=== PATIENT | male | born 1990 | race African-American/Black ===

== ENCOUNTER 2022-11-18 08:51 | Emergency (ER) | payer SELFPAY ==
[2022-11-18] MEDS ORDERED: levETIRAcetam 500 MG/5 ML VIAL ONE (09:25)
== END 2022-11-18 10:43 | disposition home or self-care (01) ==
LOC: ERS 08:51
DX: G40.909 Epilepsy, unspecified, not intractable, without status epilepticus (principal); E03.9 Hypothyroidism, unspecified; I10 Essential (primary) hypertension; F17.210 Nicotine dependence, cigarettes, uncomplicated; Z79.899 Other long term (current) drug therapy
CPT/HCPCS: 96365; J1953

== ENCOUNTER 2023-10-09 09:49 | Inpatient (IN) | payer OTHER ==
[2023-10-09] MEDS ORDERED: Ondansetron PF 4 MG/2 ML Vial IVP PRN (11:00)
[2023-10-09] MEDS ORDERED: Acetaminophen 325 MG TAB PO PRN (11:00)
[2023-10-09] MEDS ORDERED: Sodium Chloride 0.9% 1,000 ML IV SCH (11:00)
[2023-10-09] MEDS ORDERED: Ondansetron ODT 4 MG TAB SL PRN (11:00)
[2023-10-09] MEDS ORDERED: FLU VACC QS2023-24(6MOS UP)/PF 60 MCG/0.5 ML SYRINGE IM ONE (11:45)
[2023-10-09] MEDS ORDERED: ALPRAZolam 0.5 MG TAB PO SCH (13:45)
[2023-10-09] MEDS ORDERED: Ziprasidone 20 MG CAP PO SCH (13:45)
[2023-10-09] MEDS: Phenytoin Extended Release 100 MG CAP PO SCH (20:56)
[2023-10-09] MEDS: levETIRAcetam 500 MG TAB PO SCH (20:56)
[2023-10-09] MEDS: ALPRAZolam 1 MG TAB PO SCH (20:56)
[2023-10-10] MEDS: Levothyroxine Sodium 25 MCG TAB PO SCH (06:35)
[2023-10-10 08:16] LABS: #Neutrophils 10.9 thou/uL (1.40-6.50); %Basophils 0.2 % (0.0-1.0); %Eosinophils 0.1 % (0.0-10.0); %Lymphocytes 13.8 % (21.0-51.0); %Monocytes 6.9 % (0.0-10.0); %Neutrophils 78.6 % (42.0-75.0); Hematocrit 44.3 % (42.0-52.0); Hemoglobin 15.3 g/dL (14.0-18.0); Mean Corpuscular HGB CONC 34.5 g/dL (32.0-36.0); Mean Corpuscular Hemoglobin 31.5 pg (27.0-31.0); Mean Corpuscular Volume 91.2 fl (78.0-98.0); Mean Platelet Volume 9.2 fL (7.4-10.4); Platelet Count 271 10x3/uL (130-400); RBC Distribution Width 13.5 % (11.5-14.5); Red Blood Cell (RBC) Count 4.86 mill/uL (4.70-6.10); White Blood Cell (WBC) Count 13.9 10x3/uL (4.8-10.8)
[2023-10-10 08:23] LABS: ALT (SGPT) 24 U/L (8-55); AST (SGOT) 32 U/L (5-34); Albumin 3.9 g/dL (3.5-5.0); Alkaline Phosphatase 62 U/L (40-110); Anion Gap 12 mmol/L (10-20); BUN (Urea Nitrogen) 6 mg/dL (8.9-20.6); Bilirubin, Total 0.6 mg/dL (0.2-1.2); Calc. Creatinine Clearance 84 mL/min (70-130); Calcium 8.7 mg/dL (7.8-10.44); Carbon Dioxide 20 mmol/L (22-29); Chloride 109 mmol/L (98-107); Estimated GFR 91; Globulin 2.7 g/dL (2.4-3.5); Glucose 95 mg/dL (70-105); Magnesium 2.2 mg/dL (1.6-2.6); Potassium 3.3 mmol/L (3.5-5.1); Protein, Total 6.6 g/dL (6.0-8.3); Sodium 138 mmol/L (136-145)
[2023-10-10] MEDS: Amlodipine 10 MG TAB PO SCH ×2 (08:50→08:51)
[2023-10-10] MEDS: levETIRAcetam 500 MG TAB PO SCH ×2 (08:51→21:52)
[2023-10-10] MEDS: Phenytoin Extended Release 100 MG CAP PO SCH ×2 (08:51→21:52)
[2023-10-10] MEDS: ALPRAZolam 1 MG TAB PO SCH ×2 (08:51→21:52)
[2023-10-10] MEDS: Ziprasidone 20 MG CAP PO SCH (08:52)
[2023-10-10] MEDS ORDERED: Electrolyte Replacement Protocol 1 EACH FS SCH (09:00)
[2023-10-10] MEDS ORDERED: Potassium Chloride 20 MEQ TAB PO SCH (09:15)
[2023-10-11 04:21] LABS: #Basophils 0.1 thou/uL (0.0-0.2); #Eosinphils 0.1 thou/uL (0.0-0.7); #Monocytes 1.1 thou/uL (0.11-0.59); #Neutrophils 7.2 thou/uL (1.40-6.50); %Basophils 0.5 % (0.0-1.0); %Eosinophils 0.6 % (0.0-10.0); %Lymphocytes 21.3 % (21.0-51.0); %Monocytes 9.8 % (0.0-10.0); %Neutrophils 67.3 % (42.0-75.0); Hematocrit 45.5 % (42.0-52.0); Hemoglobin 15.5 g/dL (14.0-18.0); Mean Corpuscular HGB CONC 34.1 g/dL (32.0-36.0); Mean Corpuscular Hemoglobin 30.4 pg (27.0-31.0); Mean Corpuscular Volume 89.2 fl (78.0-98.0); Mean Platelet Volume 9.4 fL (7.4-10.4); Platelet Count 260 10x3/uL (130-400); RBC Distribution Width 13.5 % (11.5-14.5); White Blood Cell (WBC) Count 10.7 10x3/uL (4.8-10.8)
[2023-10-11 04:46] LABS: Anion Gap 13 mmol/L (10-20); BUN (Urea Nitrogen) 6 mg/dL (8.9-20.6); CK (CPK) 2361 U/L (30-200); Calc. Creatinine Clearance 89 mL/min (70-130); Calcium 9.3 mg/dL (7.8-10.44); Carbon Dioxide 26 mmol/L (22-29); Chloride 107 mmol/L (98-107); Estimated GFR 97; Glucose 81 mg/dL (70-105); Magnesium 2.2 mg/dL (1.6-2.6); Potassium 3.8 mmol/L (3.5-5.1); Sodium 142 mmol/L (136-145)
[2023-10-11] MEDS: Levothyroxine Sodium 25 MCG TAB PO SCH (06:09)
[2023-10-11] MEDS ORDERED: Lactated Ringer's 1,000 ML IV SCH (07:30)
[2023-10-11] MEDS: Ziprasidone 20 MG CAP PO SCH (08:40)
[2023-10-11] MEDS: Phenytoin Extended Release 100 MG CAP PO SCH ×2 (08:41→20:14)
[2023-10-11] MEDS: ALPRAZolam 1 MG TAB PO SCH ×2 (08:41→20:14)
[2023-10-11] MEDS: levETIRAcetam 500 MG TAB PO SCH ×2 (08:41→20:14)
[2023-10-11] MEDS: Amlodipine 10 MG TAB PO SCH (08:46)
[2023-10-11] MEDS: Lactated Ringer's 1,000 ML IV SCH ×2 (08:48→17:02)
[2023-10-12 04:22] LABS: #Basophils 0.1 thou/uL (0.0-0.2); #Eosinphils 0.1 thou/uL (0.0-0.7); #Monocytes 0.9 thou/uL (0.11-0.59); #Neutrophils 7.7 thou/uL (1.40-6.50); %Basophils 0.6 % (0.0-1.0); %Eosinophils 0.6 % (0.0-10.0); %Lymphocytes 17.5 % (21.0-51.0); %Monocytes 8.8 % (0.0-10.0); %Neutrophils 72.2 % (42.0-75.0); Hematocrit 44.1 % (42.0-52.0); Hemoglobin 15.4 g/dL (14.0-18.0); Mean Corpuscular HGB CONC 34.9 g/dL (32.0-36.0); Mean Corpuscular Hemoglobin 30.8 pg (27.0-31.0); Mean Corpuscular Volume 88.2 fl (78.0-98.0); Mean Platelet Volume 9.2 fL (7.4-10.4); Platelet Count 244 10x3/uL (130-400); RBC Distribution Width 13.2 % (11.5-14.5); White Blood Cell (WBC) Count 10.6 10x3/uL (4.8-10.8)
[2023-10-12 04:53] LABS: Anion Gap 11 mmol/L (10-20); BUN (Urea Nitrogen) 8 mg/dL (8.9-20.6); CK (CPK) 3459 U/L (30-200); Calc. Creatinine Clearance 107 mL/min (70-130); Carbon Dioxide 26 mmol/L (22-29); Chloride 105 mmol/L (98-107); Estimated GFR 118; Glucose 85 mg/dL (70-105); Magnesium 1.8 mg/dL (1.6-2.6); Potassium 3.2 mmol/L (3.5-5.1); Sodium 139 mmol/L (136-145)
[2023-10-12] MEDS: Levothyroxine Sodium 25 MCG TAB PO SCH (05:28)
[2023-10-12] MEDS ORDERED: Potassium Chloride 20 MEQ TAB PO SCH (08:00)
[2023-10-12] MEDS ORDERED: Magnesium 2 GM/50 ML(in water) 2 GM in Premix 1 BAG IVPB SCH (08:00)
[2023-10-12] MEDS: Lactated Ringer's 1,000 ML IV SCH ×4 (09:12→22:30)
[2023-10-12] MEDS: Phenytoin Extended Release 100 MG CAP PO SCH ×2 (09:14→20:56)
[2023-10-12] MEDS: Ziprasidone 20 MG CAP PO SCH (09:14)
[2023-10-12] MEDS: Amlodipine 10 MG TAB PO SCH (09:15)
[2023-10-12] MEDS: ALPRAZolam 1 MG TAB PO SCH ×2 (09:15→20:56)
[2023-10-12] MEDS: levETIRAcetam 500 MG TAB PO SCH ×2 (09:16→20:56)
[2023-10-12] MEDS ORDERED: Melatonin 3 MG TAB PO PRN (23:05)
[2023-10-13] MEDS: Lactated Ringer's 1,000 ML IV SCH ×3 (03:52→13:58)
[2023-10-13 05:27] LABS: #Eosinphils 0.1 thou/uL (0.0-0.7); #Monocytes 0.8 thou/uL (0.11-0.59); %Basophils 0.4 % (0.0-1.0); %Eosinophils 0.8 % (0.0-10.0); %Lymphocytes 16.6 % (21.0-51.0); %Neutrophils 74.9 % (42.0-75.0); Hematocrit 45.2 % (42.0-52.0); Hemoglobin 15.6 g/dL (14.0-18.0); Mean Corpuscular HGB CONC 34.5 g/dL (32.0-36.0); Mean Corpuscular Hemoglobin 30.6 pg (27.0-31.0); Mean Corpuscular Volume 88.6 fl (78.0-98.0); Mean Platelet Volume 9.4 fL (7.4-10.4); Platelet Count 226 10x3/uL (130-400); RBC Distribution Width 13.1 % (11.5-14.5); White Blood Cell (WBC) Count 10.7 10x3/uL (4.8-10.8)
[2023-10-13 05:53] LABS: Anion Gap 12 mmol/L (10-20); BUN (Urea Nitrogen) 6 mg/dL (8.9-20.6); CK (CPK) 3043 U/L (30-200); Calc. Creatinine Clearance 102 mL/min (70-130); Carbon Dioxide 27 mmol/L (22-29); Chloride 107 mmol/L (98-107); Estimated GFR 116; Glucose 92 mg/dL (70-105); Magnesium 1.8 mg/dL (1.6-2.6); Sodium 142 mmol/L (136-145)
[2023-10-13] MEDS: Levothyroxine Sodium 25 MCG TAB PO SCH (06:07)
[2023-10-13] MEDS ORDERED: Magnesium 2 GM/50 ML(in water) 2 GM in Premix 1 BAG IVPB SCH (08:00)
[2023-10-13] MEDS: Phenytoin Extended Release 100 MG CAP PO SCH (08:39)
[2023-10-13] MEDS: ALPRAZolam 1 MG TAB PO SCH (08:39)
[2023-10-13] MEDS: Ziprasidone 20 MG CAP PO SCH (08:40)
[2023-10-13] MEDS: Amlodipine 10 MG TAB PO SCH (08:40)
[2023-10-13] MEDS: levETIRAcetam 500 MG TAB PO SCH (08:40)
[2023-10-13 12:54] VITALS: BP 123/91; TEMP 97.4
== END 2023-10-13 14:02 | disposition home or self-care (01) | DRG 101 ==
LOC: 2SE 10:23 → OBSVTOIN 10-12 08:38
PROVIDERS: ADMIT Internal Medicine; ATTEND Family Medicine
DX: G40.909 Epilepsy, unspecified, not intractable, without status epilepticus (principal); R45.851 Suicidal ideations; G93.40 Encephalopathy, unspecified; M62.82 Rhabdomyolysis; F20.9 Schizophrenia, unspecified; F14.10 Cocaine abuse, uncomplicated; F17.210 Nicotine dependence, cigarettes, uncomplicated; F79 Unspecified intellectual disabilities; E03.9 Hypothyroidism, unspecified; Z56.0 Unemployment, unspecified; Z71.51 Drug abuse counseling and surveillance of drug abuser; Z88.0 Allergy status to penicillin
CPT/HCPCS: 36415; 70551; 80048; 80053; 82550; 83735; 84146; 85025; 90471; 90686; 95711; 95819; 96360; G0008; G0378; J3475; J7050; J7120